=== PATIENT | female | born 1965 | race Caucasian/White ===

== ENCOUNTER 2021-12-16 09:13 | Emergency (ER) | payer MEDICAID ==
[~2021-12-16] VITALS: Ht 157.5 cm; Wt 59.1 kg
[2021-12-16] MEDS ORDERED: normal saline 1000ML IV soln IVB ONE (10:10)
[2021-12-16 10:54] LABS: BASOPHILS # (AUTO) 0.1 X10'3 (0-0.2); BASOPHILS % (AUTO) 0.7 % (0-1); EOSINOPHILS # (AUTO) 0.1 X10'3 (0-0.9); EOSINOPHILS % (AUTO) 0.7 % (0-6); HEMATOCRIT 39.9 % (35.0-45.0); HEMOGLOBIN 13.7 g/dl (12.0-16.0); LYMPHOCYTES # (AUTO) 1.6 X10'3 (1.1-4.8); LYMPHOCYTES % (AUTO) 16.1 % (21-51); MEAN CORPUSCULAR HEMOGLOBIN 31.7 PG (27.0-31.0); MEAN CORPUSCULAR HGB CONC 34.3 g/dL (33.0-36.5); MEAN CORPUSCULAR VOLUME 92.7 FL (78-98); MEAN PLATELET VOLUME 7.8 FL (7.4-10.4); MONOCYTES # (AUTO) 0.5 X10'3 (0-0.9); MONOCYTES % (AUTO) 5.5 % (2-12); NEUTROPHILS # (AUTO) 7.6 X10'3 (1.8-7.7); PLATELET COUNT 255 X10'3 (140-440); RED CELL DISTRIBUTION WIDTH 14.5 % (11.5-14.5); WHITE BLOOD COUNT 9.9 X10'3 (4.5-11.0)
--- NOTE | 2021-12-16 11:10 | NUR ---
Pt up to bathroom.
[2021-12-16 11:11] LABS: ALANINE AMINOTRANSFERASE 94 U/L (12-78); ALBUMIN 3.4 G/DL (3.4-5.0); ALBUMIN/GLOBULIN RATIO 1.1 (1.1-1.5); ALKALINE PHOSPHATASE 149 IU/L (46-116); ANION GAP 13 (8-16); ASPARTATE AMINO TRANSFERASE 54 U/L (10-37); BILIRUBIN,TOTAL 0.7 MG/DL (0.1-1.0); BLOOD UREA NITROGEN 12 MG/DL (7-18); BUN/CREATININE RATIO 21.4 (6.6-38.0); CALCIUM 8.5 MG/DL (8.5-10.1); CHLORIDE 106 MMOL/L (99-107); CREATININE 0.56 MG/DL (0.40-0.90); GLUCOSE 255 MG/DL (70-104); POTASSIUM 3.8 MMOL/L (3.5-5.1); SODIUM 142 MMOL/L (135-145); TOTAL CARBON DIOXIDE 22.7 MMOL/L (24-32); TOTAL PROTEIN 6.4 G/DL (6.4-8.2); eGFR > 90 ML/MIN
--- NOTE | 2021-12-16 11:13 | NUR ---
Pt back from bathroom
--- NOTE | 2021-12-16 11:30 | NUR ---
Pt ordered a diabetic meal tray
[2021-12-16 11:37] LABS: CLARITY,URINE CLEAR (Clear); COLOR,URINE YELLOW (Yellow); GLUCOSE, URINE 250 mg/dl (Neg); KETONES,URINE NEGATIVE (Neg); LEUKOCYTE ESTERASE ,URINE TRACE (Neg); NITRITES, URINE NEGATIVE (Neg); OCCULT BLOOD,URINE NEGATIVE (Neg); PROTEIN,URINE 30 mg/dl (Neg)
[2021-12-16 11:42] LABS: UA COLLECTION TYPE NON-SPECIFIED
[2021-12-16 11:46] LABS: BACTERIA,URINE 1+ /HPF (Neg); RBC,URINE NONE SEEN /HPF (0-2); SQUAMOUS EPITHELIAL CELL,UR MANY /LPF (FEW); WBC,URINE 30-50 /HPF (0-4)
[2021-12-16 11:47] LABS: MUCUS STRANDS NONE SEEN /LPF (Neg); TRANSITIONAL EPI CELLS,URINE FEW /HPF; WBC CLUMPS,URINE FEW /HPF (NEGATIVE)
--- NOTE | 2021-12-16 12:08 | NUR ---
Pt back from XR, meal tray at bedside.
[2021-12-16 12:45] VITALS: BP 127/87
== END 2021-12-16 12:50 | disposition home or self-care (01) ==
LOC: ER 09:14
DX: E11.65 Type 2 diabetes mellitus with hyperglycemia (principal); I11.9 Hypertensive heart disease without heart failure; E78.00 Pure hypercholesterolemia, unspecified; F12.10 Cannabis abuse, uncomplicated; F15.10 Other stimulant abuse, uncomplicated; F17.210 Nicotine dependence, cigarettes, uncomplicated
CPT/HCPCS: 36415; 71046; 80053; 81001; 82009; 82948; 84484; 85025; 93005; 96360; 96361; 99285; J7030

== ENCOUNTER 2021-12-21 09:27 | Emergency (ER) | payer MEDICAID ==
[~2021-12-21] VITALS: Ht 160 cm; Wt 65.0 kg
[2021-12-21] MEDS ORDERED: aspirin 81mg tab.chew PO ONE (09:55)
[2021-12-21 10:10] LABS: BASOPHILS % (AUTO) 0.4 % (0-1); EOSINOPHILS % (AUTO) 0.6 % (0-6); HEMATOCRIT 41.2 % (35.0-45.0); HEMOGLOBIN 13.8 g/dl (12.0-16.0); LYMPHOCYTES # (AUTO) 1.5 X10'3 (1.1-4.8); LYMPHOCYTES % (AUTO) 19.5 % (21-51); MEAN CORPUSCULAR HEMOGLOBIN 31.4 PG (27.0-31.0); MEAN CORPUSCULAR HGB CONC 33.5 g/dL (33.0-36.5); MEAN CORPUSCULAR VOLUME 93.8 FL (78-98); MEAN PLATELET VOLUME 7.2 FL (7.4-10.4); MONOCYTES # (AUTO) 0.5 X10'3 (0-0.9); NEUTROPHILS # (AUTO) 5.8 X10'3 (1.8-7.7); NEUTROPHILS % (AUTO) 73.5 % (42-75); PLATELET COUNT 283 X10'3 (140-440); RED CELL DISTRIBUTION WIDTH 14.7 % (11.5-14.5); WHITE BLOOD COUNT 7.9 X10'3 (4.5-11.0)
[2021-12-21 10:20] LABS: ALANINE AMINOTRANSFERASE 65 U/L (12-78); ALBUMIN 3.3 G/DL (3.4-5.0); ALBUMIN/GLOBULIN RATIO 1.1 (1.1-1.5); ALKALINE PHOSPHATASE 115 IU/L (46-116); ANION GAP 8 (8-16); ASPARTATE AMINO TRANSFERASE 39 U/L (10-37); BILIRUBIN,TOTAL 0.6 MG/DL (0.1-1.0); BLOOD UREA NITROGEN 18 MG/DL (7-18); CALCIUM 8.8 MG/DL (8.5-10.1); CHLORIDE 107 MMOL/L (99-107); GLUCOSE 323 MG/DL (70-104); POTASSIUM 3.9 MMOL/L (3.5-5.1); SODIUM 141 MMOL/L (135-145); TOTAL CARBON DIOXIDE 25.6 MMOL/L (24-32); TOTAL PROTEIN 6.4 G/DL (6.4-8.2); eGFR > 90 ML/MIN
[2021-12-21] MEDS ORDERED: furosemide 10 MG/1 ML 10ml inj IV ONE (11:05)
--- NOTE | 2021-12-21 11:37 | NUR ---
NICK ENRIQUEZ [phone]
[2021-12-21] MEDS ORDERED: POTA10CA44 PO (14:29)
[2021-12-21] MEDS ORDERED: FURO40TA4 PO (14:29)
[2021-12-21 15:44] VITALS: BP 155/84
== END 2021-12-21 15:52 | disposition home or self-care (01) ==
LOC: ER 09:27
DX: I50.23 Acute on chronic systolic (congestive) heart failure (principal); E78.00 Pure hypercholesterolemia, unspecified; Z20.822 Contact with and (suspected) exposure to COVID-19; F17.210 Nicotine dependence, cigarettes, uncomplicated; F12.10 Cannabis abuse, uncomplicated; F15.10 Other stimulant abuse, uncomplicated; E11.9 Type 2 diabetes mellitus without complications
CPT/HCPCS: 36415; 71045; 80053; 83735; 83880; 84484; 85025; 93005; 96374; 99285; J1940

== ENCOUNTER 2023-12-29 13:06 | Inpatient (IN) | payer MEDICAID ==
[~2023-12-29] VITALS: Ht 157.5 cm; Wt 36.4 kg
[~2023-12-29 13:06] MED LIST: FURO40TA4 PO
[2023-12-29 14:49] LABS: HEMOGLOBIN 12.7 g/dl (12.0-16.0); MEAN PLATELET VOLUME 5.8 FL (7.4-10.4); RED CELL DISTRIBUTION WIDTH 19.7 % (11.5-14.5)
[2023-12-29 14:51] LABS: BASOPHILS % (AUTO) 0.5 % (0-1); EOSINOPHILS % (AUTO) 0.3 % (0-6); HEMATOCRIT 37.5 % (35.0-45.0); LYMPHOCYTES # (AUTO) 1.9 X10'3 (1.1-4.8); LYMPHOCYTES % (AUTO) 20.8 % (21-51); MEAN CORPUSCULAR HEMOGLOBIN 26.2 PG (27.0-31.0); MEAN CORPUSCULAR HGB CONC 33.9 g/dL (33.0-36.5); MEAN CORPUSCULAR VOLUME 77.3 FL (78-98); MONOCYTES # (AUTO) 0.7 X10'3 (0-0.9); MONOCYTES % (AUTO) 7.5 % (2-12); NEUTROPHILS # (AUTO) 6.3 X10'3 (1.8-7.7); NEUTROPHILS % (AUTO) 70.9 % (42-75); PLATELET COUNT 668 X10'3 (140-440); RED BLOOD COUNT 4.86 X10'6 (4.20-5.60); WHITE BLOOD COUNT 8.9 X10'3 (4.5-11.0)
[2023-12-29 15:05] LABS: ALANINE AMINOTRANSFERASE 25 U/L (12-78); ALBUMIN 3.8 G/DL (3.4-5.0); ALBUMIN/GLOBULIN RATIO 0.8 (1.1-1.5); ALKALINE PHOSPHATASE 97 IU/L (46-116); ANION GAP 12 (8-16); ASPARTATE AMINO TRANSFERASE 19 U/L (10-37); BILIRUBIN,TOTAL 0.3 MG/DL (0.1-1.0); BLOOD UREA NITROGEN 83 MG/DL (7-18); BUN/CREATININE RATIO 65.4 (10.0-20.0); CALCIUM 9.4 MG/DL (8.5-10.1); CHLORIDE 92 MMOL/L (99-107); CREATININE 1.27 MG/DL (0.40-0.90); GLUCOSE 160 MG/DL (70-104); LIPASE 40 U/L (16-77); POTASSIUM 4.9 MMOL/L (3.5-5.1); SODIUM 121 MMOL/L (135-145); TOTAL CARBON DIOXIDE 17.5 MMOL/L (24-32); TOTAL PROTEIN 8.8 G/DL (6.4-8.2); eCRCL 27 ML/MIN; eGFR 43 ML/MIN
[2023-12-29 15:08] LABS: ANISOCYTOSIS 2+; BURR CELLS FEW; ELLIPTOCYTES FEW; MICROCYTOSIS 1+; PLATELET ESTIMATE INCREASED; TEAR DROP CELLS FEW
[2023-12-29 17:49] LABS: ALBUMIN 4.1 G/DL (3.4-5.0); ANION GAP 12 (8-16); BLOOD UREA NITROGEN 89 MG/DL (7-18); CALCIUM 9.7 MG/DL (8.5-10.1); CHLORIDE 91 MMOL/L (99-107); CREATININE 1.46 MG/DL (0.40-0.90); GLUCOSE 203 MG/DL (70-104); POTASSIUM 5.4 MMOL/L (3.5-5.1); TOTAL CARBON DIOXIDE 17.3 MMOL/L (24-32); eCRCL 24 ML/MIN; eGFR 37 ML/MIN
[2023-12-29 17:52] LABS: SODIUM 120 MMOL/L (135-145)
[2023-12-29] MEDS: normal saline 1000ML IV soln IVB ONE (19:30)
[2023-12-29] MEDS: normal saline 1000ml 1,000 ML IV SCH (21:15)
[2023-12-29] MEDS ORDERED: magnesium 2GM in 50ml NS 50 ML IV PRN (21:15)
[2023-12-29] MEDS ORDERED: mag hydrox/Alum hydrox/simeth 30ml oral suspension PO PRN (21:15)
[2023-12-29] MEDS ORDERED: acetaminophen 325mg tablet PO PRN ×2 (21:15)
[2023-12-29] MEDS ORDERED: magnesium Cl slow-release 64mg tablet PO PRN (21:15)
[2023-12-29] MEDS ORDERED: potassium Cl 20 mEq SR tablet PO PRN ×2 (21:15)
[2023-12-29] MEDS ORDERED: magnesium hydroxide 30ml (MOM) UD suspension PO PRN (21:15)
[2023-12-29] MEDS ORDERED: magnesium 4gm in 100ml NS 100 ML IV PRN (21:15)
[2023-12-29] MEDS ORDERED: potassium Cl 40MEQ/1/2NS 520ml 520 ML IV PRN (21:15)
[2023-12-29] MEDS ORDERED: HYDROcodone/acetaminophen 5mg/325mg tablet PO PRN (21:15)
[2023-12-29 21:47] LABS: HEMOGLOBIN A1C 6.4 % (4.5-6.2)
[2023-12-29] MEDS: ondansetron/PF 4mg/2ml inj IV PRN (23:13)
[2023-12-29] MEDS: HYDROcodone/acetaminophen 10/325mg tab PO PRN (23:13)
[2023-12-29 23:24] LABS: URINE HCG NEGATIVE (NEG)
[2023-12-29 23:26] LABS: BILIRUBIN,URINE NEGATIVE (Neg); CLARITY,URINE SLIGHTLY CLOUDY (Clear); COLOR,URINE YELLOW (Yellow); GLUCOSE, URINE >=1000 mg/dl (Neg); KETONES,URINE NEGATIVE (Neg); LEUKOCYTE ESTERASE ,URINE NEGATIVE (Neg); NITRITES, URINE NEGATIVE (Neg); OCCULT BLOOD,URINE NEGATIVE (Neg); PH,URINE 5.5 (4.8-8.0); PROTEIN,URINE NEGATIVE (Neg); UROBILINOGEN,URINE 0.2 E.U/dL (0.2-1.0)
[2023-12-29 23:36] LABS: UA COLLECTION TYPE CLN CATCH MIDSTREAM
[2023-12-29 23:37] LABS: BACTERIA,URINE 1+ /HPF (Neg); MUCUS STRANDS FEW /LPF (Neg); RBC,URINE 0-2 /HPF (0-2); SQUAMOUS EPITHELIAL CELL,UR MODERATE /LPF (FEW); WBC,URINE 0-4 /HPF (0-4)
[2023-12-29 23:38] LABS: RENAL CELLS, URINE FEW /HPF; TRANSITIONAL EPI CELLS,URINE FEW /HPF
[2023-12-30] MEDS ORDERED: DEXTROSE 15 GM of carb/4 tabs (each vial/BOTTLE has 4 tablets) PO PRN ×2
[2023-12-30] MEDS ORDERED: glucagon, human recombinant 1mg kit SUBCUT PRN
[2023-12-30] MEDS ORDERED: dextrose 50%-water 50ml dispensing syringe IV PRN ×2
[2023-12-30] MEDS ORDERED: lactose-reduced food (Ensure Enlive) - 237ml bottle PO SCH (00:10)
[2023-12-30] MEDS ORDERED: insulin Lispro (HumaLOG) vial - multi-dose SQ SCH (00:10)
[2023-12-30] MEDS ORDERED: HYDROmorphone inj. 0.5 MG/0.5 ML DISP.SYRIN IV PRN (00:15)
[2023-12-30 00:34] LABS: ALBUMIN 3.1 G/DL (3.4-5.0); ANION GAP 14 (8-16); BLOOD UREA NITROGEN 78 MG/DL (7-18); CALCIUM 8.1 MG/DL (8.5-10.1); CHLORIDE 98 MMOL/L (99-107); GLUCOSE 161 MG/DL (70-104); SODIUM 127 MMOL/L (135-145); TOTAL CARBON DIOXIDE 15.2 MMOL/L (24-32); eCRCL 26 ML/MIN; eGFR 42 ML/MIN
[2023-12-30 06:04] LABS: ALANINE AMINOTRANSFERASE 24 U/L (12-78); ALBUMIN 3.1 G/DL (3.4-5.0); ALBUMIN/GLOBULIN RATIO 0.8 (1.1-1.5); ALKALINE PHOSPHATASE 77 IU/L (46-116); ANION GAP 10 (8-16); ASPARTATE AMINO TRANSFERASE 17 U/L (10-37); BILIRUBIN,TOTAL 0.3 MG/DL (0.1-1.0); BLOOD UREA NITROGEN 65 MG/DL (7-18); BUN/CREATININE RATIO 66.3 (10.0-20.0); CALCIUM 8.4 MG/DL (8.5-10.1); CHLORIDE 101 MMOL/L (99-107); CHOLESTEROL 121 MG/DL (0-200); CREATININE 0.98 MG/DL (0.40-0.90); GLUCOSE 111 MG/DL (70-104); HDL CHOLESTEROL 60 MG/DL (35-60); LDL CHOLESTEROL 39 MG/DL (50-100); MAGNESIUM 2.3 MG/DL (1.5-2.4); PHOSPHORUS 3.8 MG/DL (2.3-4.5); SODIUM 129 MMOL/L (135-145); TOTAL CARBON DIOXIDE 17.9 MMOL/L (24-32); TOTAL PROTEIN 7.1 G/DL (6.4-8.2); TRIGLYCERIDES 145 MG/DL (20-135); eCRCL 35 ML/MIN; eGFR 58 ML/MIN
[2023-12-30] MEDS: nicotine 21mg patch - 24 hr TD SCH (06:51)
[2023-12-30] MEDS: HYDROmorphone 1 mg/ml syringe IV ONE (06:54)
[2023-12-30] MEDS: pantoprazole 40mg Tablet.DR PO SCH (07:31)
[2023-12-30] MEDS: carVEDilol 3.125mg tablet PO SCH (08:00)
[2023-12-30] MEDS: lisinopril 2.5mg tablet PO SCH (08:00)
[2023-12-30] MEDS: lactose-reduced food (Ensure Enlive) - 237ml bottle PO SCH (08:00)
[2023-12-30] MEDS ORDERED: furosemide 20MG tablet PO SCH (08:00)
[2023-12-30] MEDS: EMPAGLIFLOZIN 10 MG TABLET PO SCH (08:00)
[2023-12-30] MEDS: K and/or MAG REPLACEMENT MC SCH (08:00)
[2023-12-30] MEDS ORDERED: docusate sod 100mg capsule PO SCH (08:00)
[2023-12-30 08:17] LABS: BASOPHILS % (AUTO) 0.8 % (0-1); EOSINOPHILS % (AUTO) 0.2 % (0-6); HEMATOCRIT 32.4 % (35.0-45.0); HEMOGLOBIN 11.1 g/dl (12.0-16.0); LYMPHOCYTES # (AUTO) 1.8 X10'3 (1.1-4.8); LYMPHOCYTES % (AUTO) 27.8 % (21-51); MEAN CORPUSCULAR HEMOGLOBIN 26.6 PG (27.0-31.0); MEAN CORPUSCULAR HGB CONC 34.2 g/dL (33.0-36.5); MEAN CORPUSCULAR VOLUME 77.8 FL (78-98); MEAN PLATELET VOLUME 5.7 FL (7.4-10.4); MONOCYTES # (AUTO) 0.6 X10'3 (0-0.9); MONOCYTES % (AUTO) 8.7 % (2-12); NEUTROPHILS % (AUTO) 62.5 % (42-75); PLATELET COUNT 526 X10'3 (140-440); RED BLOOD COUNT 4.16 X10'6 (4.20-5.60); RED CELL DISTRIBUTION WIDTH 19.7 % (11.5-14.5); WHITE BLOOD COUNT 6.4 X10'3 (4.5-11.0)
[2023-12-30 08:49] LABS: ANISOCYTOSIS 2+; MICROCYTOSIS 1+; PLATELET ESTIMATE INCREASED
[2023-12-30 09:00] VITALS: RESP 18; O2SAT 95
[2023-12-30 10:00] VITALS: BP 113/62; PULSE 81; RESP 18; TEMP 96.8; O2SAT 96
[2023-12-30] MEDS: oxyCODONE SR 10mg (sust. release) tab PO SCH (10:48)
[2023-12-30 18:00] VITALS: BP 113/52; PULSE 75; RESP 16; TEMP 97.6; O2SAT 100
[2023-12-30 20:30] VITALS: RESP 16; O2SAT 100
[2023-12-30] MEDS: insulin glargine (Lantus) pen - multi-dose SQ SCH (21:00)
[2023-12-30] MEDS: mirtazapine 15mg tablet PO SCH (21:00)
[2023-12-30 22:00] VITALS: BP 137/60; PULSE 79; RESP 14; TEMP 98.7; O2SAT 100
[2023-12-31 06:00] VITALS: BP 141/67; PULSE 75; RESP 14; TEMP 98.4; O2SAT 99
[2023-12-31 06:17] LABS: BASOPHILS % (AUTO) 0.6 % (0-1); EOSINOPHILS % (AUTO) 0.3 % (0-6); HEMOGLOBIN 9.8 g/dl (12.0-16.0); LYMPHOCYTES # (AUTO) 1.6 X10'3 (1.1-4.8); LYMPHOCYTES % (AUTO) 21.3 % (21-51); MEAN CORPUSCULAR HEMOGLOBIN 26.1 PG (27.0-31.0); MEAN CORPUSCULAR HGB CONC 33.8 g/dL (33.0-36.5); MEAN CORPUSCULAR VOLUME 77.2 FL (78-98); MEAN PLATELET VOLUME 5.8 FL (7.4-10.4); MONOCYTES # (AUTO) 0.7 X10'3 (0-0.9); NEUTROPHILS % (AUTO) 68.8 % (42-75); PLATELET COUNT 492 X10'3 (140-440); RED BLOOD COUNT 3.76 X10'6 (4.20-5.60); RED CELL DISTRIBUTION WIDTH 19.9 % (11.5-14.5); WHITE BLOOD COUNT 7.3 X10'3 (4.5-11.0)
[2023-12-31 06:36] LABS: ALANINE AMINOTRANSFERASE 17 U/L (12-78); ALBUMIN 2.8 G/DL (3.4-5.0); ALBUMIN/GLOBULIN RATIO 0.8 (1.1-1.5); ALKALINE PHOSPHATASE 59 IU/L (46-116); ANION GAP 9 (8-16); ASPARTATE AMINO TRANSFERASE 18 U/L (10-37); BILIRUBIN,TOTAL 0.2 MG/DL (0.1-1.0); BLOOD UREA NITROGEN 29 MG/DL (7-18); CALCIUM 8.2 MG/DL (8.5-10.1); CHLORIDE 101 MMOL/L (99-107); CREATININE 0.69 MG/DL (0.40-0.90); GLUCOSE 124 MG/DL (70-104); PHOSPHORUS 2.1 MG/DL (2.3-4.5); SODIUM 129 MMOL/L (135-145); TOTAL PROTEIN 6.5 G/DL (6.4-8.2); eCRCL 50 ML/MIN; eGFR 87 ML/MIN
[2023-12-31] MEDS: nicotine 21mg patch - 24 hr TD SCH (08:29)
[2023-12-31 10:00] VITALS: BP 113/63; PULSE 86; RESP 17; TEMP 98.2; O2SAT 93
[2023-12-31] MEDS ORDERED: COR3.125T PO (11:26)
[2023-12-31] MEDS ORDERED: LISI2.5T14 PO (11:26)
[2023-12-31] MEDS ORDERED: NICO-687 TD (11:26)
[2023-12-31] MEDS ORDERED: SODI100035 PO (11:38)
== END 2023-12-31 12:58 | disposition home health service (06) | DRG 469 ==
LOC: ER 13:07 → ED HOLD 21:25 → EDBEDREQ 12-30 06:42 → SUR 3N 12-30 08:12
PROVIDERS: ADMIT Internal Medicine; ATTEND Internal Medicine
DX: N17.9 Acute kidney failure, unspecified (principal); E43 Unspecified severe protein-calorie malnutrition; E87.1 Hypo-osmolality and hyponatremia; I50.9 Heart failure, unspecified; R62.7 Adult failure to thrive; I11.0 Hypertensive heart disease with heart failure; E87.5 Hyperkalemia; E78.00 Pure hypercholesterolemia, unspecified; G89.29 Other chronic pain; R10.9 Unspecified abdominal pain; E11.9 Type 2 diabetes mellitus without complications; Z68.1 Body mass index [BMI] 19.9 or less, adult; Z90.49 Acquired absence of other specified parts of digestive tract; Z72.0 Tobacco use; Z86.19 Personal history of other infectious and parasitic diseases; Z93.3 Colostomy status
CPT/HCPCS: 36415; 74176; 80048; 80053; 80061; 81001; 81025; 82948; 83036; 83605; 83690; 83735; 83930; 84100; 84145; 85008; 85025; 87040; 87081; 93306; 99285; A4371; A4421; A4649; A6258; A6449; G0378; J1170; J2405; J7030

== ENCOUNTER 2024-01-02 14:10 | Inpatient (IN) | payer MEDICAID ==
[~2024-01-02] VITALS: Ht 157.5 cm; Wt 36.4 kg
[~2024-01-02 14:10] MED LIST changes: +COR3.125T PO; -FURO40TA4 PO; +LISI2.5T14 PO; +NICO-687 TD; +SODI100035 PO
[2024-01-02 15:04] LABS: BASOPHILS % (AUTO) 0.7 % (0-1); EOSINOPHILS # (AUTO) 0.1 X10'3 (0-0.9); EOSINOPHILS % (AUTO) 0.8 % (0-6); HEMATOCRIT 29.5 % (35.0-45.0); HEMOGLOBIN 9.7 g/dl (12.0-16.0); LYMPHOCYTES # (AUTO) 1.6 X10'3 (1.1-4.8); LYMPHOCYTES % (AUTO) 22.1 % (21-51); MEAN CORPUSCULAR HEMOGLOBIN 25.7 PG (27.0-31.0); MEAN CORPUSCULAR HGB CONC 32.9 g/dL (33.0-36.5); MEAN CORPUSCULAR VOLUME 78.2 FL (78-98); MEAN PLATELET VOLUME 5.8 FL (7.4-10.4); MONOCYTES # (AUTO) 0.5 X10'3 (0-0.9); MONOCYTES % (AUTO) 6.5 % (2-12); NEUTROPHILS # (AUTO) 5.2 X10'3 (1.8-7.7); NEUTROPHILS % (AUTO) 69.9 % (42-75); PLATELET COUNT 486 X10'3 (140-440); RED BLOOD COUNT 3.78 X10'6 (4.20-5.60); RED CELL DISTRIBUTION WIDTH 20.3 % (11.5-14.5); WHITE BLOOD COUNT 7.4 X10'3 (4.5-11.0)
[2024-01-02 15:18] LABS: ALANINE AMINOTRANSFERASE 17 U/L (12-78); ALBUMIN/GLOBULIN RATIO 0.7 (1.1-1.5); ALKALINE PHOSPHATASE 73 IU/L (46-116); ANION GAP 9 (8-16); ANISOCYTOSIS 3+; ASPARTATE AMINO TRANSFERASE 17 U/L (10-37); BILIRUBIN,TOTAL 0.2 MG/DL (0.1-1.0); BLOOD UREA NITROGEN 18 MG/DL (7-18); BUN/CREATININE RATIO 26.1 (10.0-20.0); CALCIUM 8.8 MG/DL (8.5-10.1); CHLORIDE 98 MMOL/L (99-107); CREATININE 0.69 MG/DL (0.40-0.90); GLUCOSE 162 MG/DL (70-104); LIPASE 114 U/L (16-77); PLATELET ESTIMATE INCREASED; POTASSIUM 3.9 MMOL/L (3.5-5.1); SODIUM 130 MMOL/L (135-145); TOTAL PROTEIN 7.4 G/DL (6.4-8.2); eCRCL 50 ML/MIN; eGFR 87 ML/MIN
[2024-01-02 15:19] LABS: BURR CELLS FEW; ELLIPTOCYTES 1+; MICROCYTOSIS 1+; STOMATOCYTES FEW; TEAR DROP CELLS FEW
[2024-01-02] MEDS ORDERED: dextrose 50%-water 50ml dispensing syringe IV PRN ×2 (23:50)
[2024-01-02] MEDS ORDERED: morphine 2 MG/ML inj. syringe IV PRN ×2 (23:50)
[2024-01-02] MEDS ORDERED: HYDROcodone/acetaminophen 5mg/325mg tablet PO PRN (23:50)
[2024-01-02] MEDS ORDERED: acetaminophen 325mg tablet PO PRN ×2 (23:50)
[2024-01-02] MEDS ORDERED: INSULIN LISPRO 100 UNIT/ML INSULN.PEN MULTI-DOSE SQ SCH (23:50)
[2024-01-02] MEDS: normal saline 1000ml 1,000 ML IV SCH (23:50)
[2024-01-02] MEDS ORDERED: magnesium hydroxide 30ml (MOM) UD suspension PO PRN (23:50)
[2024-01-02] MEDS ORDERED: glucagon, human recombinant 1mg kit SUBCUT PRN (23:50)
[2024-01-02] MEDS ORDERED: DEXTROSE 15 GM of carb/4 tabs (each vial/BOTTLE has 4 tablets) PO PRN ×2 (23:50)
[2024-01-02] MEDS ORDERED: ondansetron/PF 4mg/2ml inj IV PRN (23:50)
[2024-01-02] MEDS ORDERED: mag hydrox/Alum hydrox/simeth 30ml oral suspension PO PRN (23:50)
[2024-01-03] MEDS ORDERED: PANT40TA54 PO (00:22)
[2024-01-03] MEDS ORDERED: MIRT-142 PO (00:22)
[2024-01-03] MEDS ORDERED: DIGO250T4 PO (00:22)
[2024-01-03] MEDS ORDERED: EMPA10TA PO (00:22)
[2024-01-03] MEDS ORDERED: SIME80TA15 PO (00:22)
[2024-01-03] MEDS ORDERED: OXYC-481 PO (00:22)
[2024-01-03] MEDS: ondansetron/PF 4mg/2ml inj IV ONE (00:23)
[2024-01-03] MEDS: morphine 4 MG/ML inj SYRINge IV ONE (00:24)
[2024-01-03] MEDS: pantoprazole 40 MG vial IV ONE (00:24)
[2024-01-03] MEDS: normal saline 1000ML IV soln IVB ONE (00:24)
[2024-01-03] MEDS: MESSAGE TO PHARMACY PO ONE (00:25)
[2024-01-03 03:25] LABS: BASOPHILS % (AUTO) 0.6 % (0-1); EOSINOPHILS # (AUTO) 0.1 X10'3 (0-0.9); EOSINOPHILS % (AUTO) 1.1 % (0-6); HEMATOCRIT 29.2 % (35.0-45.0); HEMOGLOBIN 9.6 g/dl (12.0-16.0); LYMPHOCYTES # (AUTO) 2.3 X10'3 (1.1-4.8); LYMPHOCYTES % (AUTO) 30.9 % (21-51); MEAN CORPUSCULAR HEMOGLOBIN 25.8 PG (27.0-31.0); MEAN CORPUSCULAR HGB CONC 32.8 g/dL (33.0-36.5); MEAN CORPUSCULAR VOLUME 78.5 FL (78-98); MEAN PLATELET VOLUME 5.9 FL (7.4-10.4); MONOCYTES # (AUTO) 0.6 X10'3 (0-0.9); MONOCYTES % (AUTO) 7.3 % (2-12); NEUTROPHILS # (AUTO) 4.5 X10'3 (1.8-7.7); NEUTROPHILS % (AUTO) 60.1 % (42-75); PLATELET COUNT 429 X10'3 (140-440); RED BLOOD COUNT 3.72 X10'6 (4.20-5.60); RED CELL DISTRIBUTION WIDTH 19.8 % (11.5-14.5); WHITE BLOOD COUNT 7.6 X10'3 (4.5-11.0)
[2024-01-03 03:45] LABS: ALBUMIN 2.8 G/DL (3.4-5.0); ANION GAP 10 (8-16); BLOOD UREA NITROGEN 18 MG/DL (7-18); BUN/CREATININE RATIO 30.5 (10.0-20.0); CALCIUM 8.8 MG/DL (8.5-10.1); CHLORIDE 105 MMOL/L (99-107); CREATININE 0.59 MG/DL (0.40-0.90); GLUCOSE 85 MG/DL (70-104); PRO BRAIN NATRIURETIC PEPTIDE 90 PG/ML (0-125); SODIUM 135 MMOL/L (135-145); TOTAL CARBON DIOXIDE 19.6 MMOL/L (24-32); eCRCL 58 ML/MIN; eGFR > 90 ML/MIN
[2024-01-03 07:19] LABS: PLATELET ESTIMATE NORMAL
[2024-01-03 07:20] LABS: ANISOCYTOSIS 2+; ELLIPTOCYTES FEW; HYPOCHROMASIA 1+; MICROCYTOSIS 1+; POLYCHROMASIA FEW; ROULEAUX 1+
[2024-01-03 07:21] LABS: BURR CELLS 5
[2024-01-03] MEDS: docusate sod 100mg capsule PO SCH (08:00)
[2024-01-03 08:15] LABS: URINE HCG NEGATIVE (NEG)
[2024-01-03 08:17] LABS: BILIRUBIN,URINE NEGATIVE (Neg); CLARITY,URINE SLIGHTLY CLOUDY (Clear); COLOR,URINE YELLOW (Yellow); GLUCOSE, URINE 250 mg/dl (Neg); KETONES,URINE NEGATIVE (Neg); LEUKOCYTE ESTERASE ,URINE TRACE (Neg); NITRITES, URINE NEGATIVE (Neg); OCCULT BLOOD,URINE NEGATIVE (Neg); PH,URINE 5.5 (4.8-8.0); PROTEIN,URINE NEGATIVE (Neg); UROBILINOGEN,URINE 0.2 E.U/dL (0.2-1.0)
[2024-01-03 08:20] LABS: UA COLLECTION TYPE VOIDED
[2024-01-03 08:24] LABS: BACTERIA,URINE 1+ /HPF (Neg); MUCUS STRANDS FEW /LPF (Neg); RBC,URINE 0-2 /HPF (0-2); SQUAMOUS EPITHELIAL CELL,UR MODERATE /LPF (FEW)
[2024-01-03 08:25] LABS: HYALINE CASTS 0-3 /LPF (NEGATIVE); TRANSITIONAL EPI CELLS,URINE FEW /HPF
[2024-01-03 18:00] VITALS: BP 114/58; PULSE 65; RESP 16; TEMP 98.3; O2SAT 100
[2024-01-03] MEDS: HYDROcodone/acetaminophen 10/325mg tab PO PRN (18:45)
[2024-01-03 19:20] VITALS: RESP 16; O2SAT 100
[2024-01-03] MEDS ORDERED: insulin glargine (Lantus) pen - multi-dose SQ SCH (21:00)
[2024-01-03 22:00] VITALS: BP 116/47; PULSE 64; RESP 12; TEMP 98.5; O2SAT 98
[2024-01-04 06:00] VITALS: BP 116/28; PULSE 69; RESP 20; TEMP 98.7; O2SAT 100
[2024-01-04 07:25] LABS: BASOPHILS # (AUTO) 0.1 X10'3 (0-0.2); BASOPHILS % (AUTO) 0.8 % (0-1); EOSINOPHILS # (AUTO) 0.1 X10'3 (0-0.9); EOSINOPHILS % (AUTO) 1.9 % (0-6); HEMATOCRIT 26.8 % (35.0-45.0); HEMOGLOBIN 8.6 g/dl (12.0-16.0); LYMPHOCYTES # (AUTO) 1.8 X10'3 (1.1-4.8); LYMPHOCYTES % (AUTO) 30.2 % (21-51); MEAN CORPUSCULAR HEMOGLOBIN 25.7 PG (27.0-31.0); MEAN CORPUSCULAR HGB CONC 32.2 g/dL (33.0-36.5); MEAN CORPUSCULAR VOLUME 79.7 FL (78-98); MEAN PLATELET VOLUME 6.3 FL (7.4-10.4); MONOCYTES # (AUTO) 0.3 X10'3 (0-0.9); MONOCYTES % (AUTO) 4.7 % (2-12); NEUTROPHILS # (AUTO) 3.8 X10'3 (1.8-7.7); NEUTROPHILS % (AUTO) 62.4 % (42-75); PLATELET COUNT 394 X10'3 (140-440); RED BLOOD COUNT 3.37 X10'6 (4.20-5.60)
[2024-01-04 07:40] LABS: ALBUMIN 2.5 G/DL (3.4-5.0); ANION GAP 12 (8-16); BLOOD UREA NITROGEN 11 MG/DL (7-18); BUN/CREATININE RATIO 17.5 (10.0-20.0); CALCIUM 8.1 MG/DL (8.5-10.1); CHLORIDE 103 MMOL/L (99-107); CREATININE 0.63 MG/DL (0.40-0.90); GLUCOSE 155 MG/DL (70-104); POTASSIUM 3.6 MMOL/L (3.5-5.1); SODIUM 134 MMOL/L (135-145); TOTAL CARBON DIOXIDE 18.6 MMOL/L (24-32); eCRCL 55 ML/MIN; eGFR > 90 ML/MIN
[2024-01-04 08:00] VITALS: RESP 18; O2SAT 100
[2024-01-04 08:11] VITALS: BP 105/30
[2024-01-04] MEDS: CefTRIAXone/D5W-Rocephin 1gm 50 ML IV SCH (09:33)
[2024-01-04 10:00] VITALS: BP_SYST 101; BP_SYST 86; BP_SYST 93; BP_DIAS 29; BP_DIAS 37; BP_DIAS 42; PULSE 71; PULSE 74; PULSE 86; RESP 18; TEMP 98.8; O2SAT 94
[2024-01-04 10:02] VITALS: BP 102/44; PULSE 76
[2024-01-04] MEDS ORDERED: COR3.125T PO (10:49)
[2024-01-04] MEDS ORDERED: LISI2.5T14 PO (10:49)
[2024-01-04] MEDS ORDERED: DIGO250T4 PO (10:49)
[2024-01-04] MEDS ORDERED: CEFD300C3 PO (10:49)
[2024-01-04] MEDS ORDERED: PANT40TA54 PO (10:49)
[2024-01-04] MEDS ORDERED: EMPA10TA PO (10:49)
[2024-01-04] MEDS ORDERED: HYDR-3965 PO (13:17)
[2024-01-04 14:39] VITALS: RESP 17
== END 2024-01-04 14:30 | disposition home or self-care (01) | DRG 253 ==
LOC: ER 14:10 → ED HOLD 23:49 → SUR 3N 01-03 16:07
PROVIDERS: ADMIT Internal Medicine; ATTEND Family Medicine
DX: K92.2 Gastrointestinal hemorrhage, unspecified (principal); E43 Unspecified severe protein-calorie malnutrition; I50.9 Heart failure, unspecified; I11.0 Hypertensive heart disease with heart failure; D62 Acute posthemorrhagic anemia; E11.9 Type 2 diabetes mellitus without complications; E78.00 Pure hypercholesterolemia, unspecified; N39.0 Urinary tract infection, site not specified; F17.210 Nicotine dependence, cigarettes, uncomplicated; G89.29 Other chronic pain; Z82.3 Family history of stroke; Z93.3 Colostomy status; Z68.1 Body mass index [BMI] 19.9 or less, adult; Z79.899 Other long term (current) drug therapy; Z90.49 Acquired absence of other specified parts of digestive tract
CPT/HCPCS: 36415; 80048; 80053; 80320; 81001; 81025; 82948; 83690; 83880; 85008; 85025; 86885; 86900; 86901; 87088; 97110; 97161; 99285; A4421; C9113; G0378; J0696; J1815; J2270; J2405; J7030